=== PATIENT | female | born 1965 | race Two or more races ===

== ENCOUNTER 2021-08-25 17:26 | Emergency (ER) | payer MEDICAID ==
[~2021-08-25] VITALS: Ht 157.5 cm; Wt 75.0 kg
[2021-08-25 17:41] VITALS: BP 152/91
== END 2021-08-25 19:35 | disposition home or self-care (01) ==
LOC: ER 17:26
DX: F41.9 Anxiety disorder, unspecified (principal); F32.A Depression, unspecified; Z59.00 Homelessness unspecified
CPT/HCPCS: 99281